=== PATIENT | male | born 1960 | race Caucasian/White ===

== ENCOUNTER 2021-01-01 18:10 | Emergency (ER) | payer OTHER, SELFPAY ==
--- NOTE | ~2021-01-01 | XR_ITS ---
EXAMINATION: XR HIP, RIGHT CLINICAL INFORMATION: Fall and pain COMPARISON: None TECHNIQUE: 6 plain film views of the right hip. FINDINGS: Femoral heads are well-seated within their respected acetabula. Degenerative changes are seen with small osteophyte formation. I do not appreciate any acute fracture or dislocation. Pelvic bones appear to be grossly intact with mild degenerative changes at the pubic symphysis and bilateral sacroiliac joints. Unremarkable bowel gas pattern XR/XR hip RT min 2V IMPRESSION: No acute fracture or dislocation with chronic appearing degenerative changes.
--- NOTE | ~2021-01-01 | CT_ITS ---
EXAMINATION: CT KNEE WITH CONTRAST, RIGHT CLINICAL INFORMATION: Knee swelling and pain COMPARISON: None TECHNIQUE: After 85 mL Omnipaque 350 intravenous contrast, contiguous helical axial tomographic images through the right knee were obtained. This CT examination was performed using dose optimization techniques as appropriate, variously including the following: *Automated exposure control *Adjustment of mA and/or kV according to patient size (this includes techniques or standardized protocols for targeted exams where dose is matched to indication/reason for exam; i.e. extremities or head) *Use of iterative reconstruction technique DLP: 226 mGy-cm FINDINGS: No fracture or dislocation seen. There is severe tricompartmental degenerative arthrosis of the knee. Medial and lateral compartment chondrocalcinosis are present. There is a moderate-sized joint effusion. There is ill-defined prepatellar soft tissue swelling but no rim-enhancing abscess seen. There is ill-defined fluid and fat stranding within the subcutaneous fat of the medial and lateral anterior subcutaneous fat from the level of the patella inferiorly. CT/CT knee RT w con IMPRESSION: No acute osseous abnormality. Severe tricompartmental degenerative arthrosis of the knee with a moderate sized joint effusion. There is ill-defined prepatellar soft tissue swelling with fluid and fat stranding of the medial and lateral anterior subcutaneous fat from the level of the patella inferiorly. This is nonspecific. They could be infectious or inflammatory, for example from cellulitis. Hematoma or soft tissue edema could have this appearance. No rim-enhancing abscess seen. No soft tissue gas. No radiopaque foreign body.
--- NOTE | ~2021-01-01 | US_ITS ---
EXAMINATION: US VENOUS ULTRASOUND WITH DOPPLER LOWER EXTREMITY, RIGHT CLINICAL INFORMATION: Swelling and pain status post fall COMPARISON: None TECHNIQUE: Ultrasound of the deep veins is performed from the hip to the calf with compression sonography and color and pulse Doppler assessment. Spectral analysis with color-flow imaging is performed. FINDINGS: There is normal venous compression and respiratory variation and augmented flow. The visualized common femoral vein, superficial femoral vein, profunda femoral vein, popliteal vein, and the trifurcation region shows no evidence of deep venous thrombosis. There is no significant popliteal fossa cyst. If the patient's symptoms persist, followup ultrasound in 5 days 7 days might be of value to exclude proximal propagation from a non-visualized calf vein. US/US venous duplex LE RT IMPRESSION: No DVT demonstrated in the right lower extremity.
[2021-01-01 18:27] VITALS: BP 178/93; BP 210/100; PULSE 107; PULSE 113; RESP 18; TEMP 36.8; O2SAT 95; O2SAT 97; BMI 44.6
--- NOTE | 2021-01-01 18:47 | ED.LOWEXIN ---
HPI - Extremity Injury (Lower) General Chief Complaint: Extremity Injury, Lower Stated Complaint: knee injury Time Seen by Provider: 01/01/21 18:39 Source: patient Mode of arrival: wheelchair Limitations: no limitations History of Present Illness HPI Narrative: 60-year-old male with past medical history of multiple bilateral knee surgeries presents with right knee pain and swelling after an injury sustained from snow shoveling. He states he is unable to walk and bear weight, and states the pressure inside his knee feels like it is going to split his knee open. He does not describe any fevers, chills, chest pain or pressure, palpitations, shortness breath, abdominal pain, abdominal distention, dysuria, hematuria, loss of sensation, or weakness. MD complaint: knee injury Onset (ago): day(s) (1) Injury: Right: knee Type of Injury: unknown Place: home Severity: severe Severity scale (1-10): 9 Relieving factors: nothing Exacerbating factors: weight bearing, movement and palpation Context: other (Snow shoveling) Associated symptoms: swelling and unable to bear weight Other symptoms: none Treatments prior to arrival: cold therapy and NSAIDS Related Data Previous Rx's Medication Instructions Recorded cyclobenzaprine 10 mg PO TID PRN #14 tab 01/01/21 oxycodone 5 mg PO Q6H PRN #10 tab 01/01/21 Allergies Allergy/AdvReac Type Severity Reaction Status Date / Time Penicillins [PCN] Allergy Intermediate HIVES Verified 01/01/21 18:27 CYNDIE Inhibitors Allergy Mild COUGH Verified 01/01/21 18:27 [CYNDIE INHIBITORS] Review of Systems Review of Systems: Constitutional: No Fever, No Chills ENT/Mouth: No Ear Pain, No Hoarseness, No sore throat Eyes: No Eye Pain, No Swelling, No Redness, No Foreign Body Cardiovascular: No Chest Pain, No SOB Respiratory: No Cough, No Dyspnea Gastrointestinal: No Nausea, No Vomiting, No Diarrhea, No abdominal Pain Genitourinary: No Dysuria, No Hematuria Musculoskeletal: positive right knee pain and swelling, No Myalgias Skin: No Skin lacerations, No rash Neuro: No Weakness, No Numbness, No Paresthesias, No Loss of Consciousness, No Dizziness, No Headache Psych: No Anxiety/Panic, No Depression Heme/Lymph: no easy bruising, no Lymphadenopathy Endocrine: No Polyuria, No Polydipsia Yes all other systems are reviewed and are negative [facility] Past Medical History Attestation statement: The following information was validated with the patient. Source: old records reviewed Medical History (Updated 01/02/21 @ 00:01 by Meaghan Au) Hypertension Hypothyroid Surgical History H/O left knee surgery History of cholecystectomy History of tonsillectomy Social History Social History Alcohol intake: current Alcohol intake frequency: a few times a week Smoking Status: Current every day smoker Substance Use Type: Marijuana Substance Use Frequency: Occasionally Last Used Substance: Weeks (ago) Advance Directives: No Advance Directives Information Provided: Yes Physical Exam Vital Signs: Vital Signs: Last Vital Signs Temp 98.4 F 01/01/21 22:35 Pulse 96 01/01/21 22:35 Resp 18 01/01/21 22:35 BP 153/78 H 01/01/21 22:35 Pulse Ox 96 01/01/21 22:35 Body Mass Index 44.6 Appearance: Alert. Oriented X3. Moderate distress. Eyes: Pupils equal, round and reactive to light. ENT: Pharynx normal. Neck: Normal inspection. Neck supple. CVS: Normal heart rate and rhythm. Pulses normal. Respiratory: No respiratory distress. Breath sounds normal. Abdomen: Soft and nontender. Skin: Skin warm and dry. Normal skin color. Normal skin turgor. Extremities: Right knee visibly swollen, tender to touch, decreased flexion and extension. Neuro: No motor deficit. No sensory deficit. Course Course Course Narrative: 60-year-old male with multiple knee surgeries presents with swelling of the right knee and pain on ambulation after an injury sustained while shoveling snow. Right knee is significantly larger than left, unable to bend flex or extend the knee. Plan of care to rule out DVT, x-ray of the hip, and CT scan of the knee. DVT is negative, hip x-ray is negative, CT scan shows large effusion. Discussion with Dr. Winston, he suggests tapping the knee and follow-up with him in the morning. Detailed discussion with patient regarding joint effusion aspiration, patient agrees with the plan of care. Procedure performed with aseptic technique, prepped and draped in sterile fashion, 85 mL of blood-tinged fluid aspirated. Pressure dressing applied. Patient will follow-up with Dr. Winston in the morning. Patient verbalized understanding of and agrees to plan of care discharge home. Consultations Consultation #1: Catrachito Time: 21:45 Procedures Joint Aspiration/Injection Joint Asp./Inject. 1: Time Out Performed: Yes Side of body: right Joint Aspirated: knee Ultrasound Guidance: Yes Skin Prep: Chlorhexidine Local Anesthetic: lidocaine 2% Amount of anesthesia used (mL): 5 Needle Size Used: 18G Fluid Obtained: bloody Total fluid obtained (mL): 85 Patient Tolerated Procedure: well and no complications Complications: none MDM - Extremity Injury (Lower) Differential Diagnosis Differential diagnosis: Likely acute internal derangement of knee and fracture of hip Medical Records Attestation: I reviewed the patient's medical records. Lab Data Attestation: I reviewed the patient's lab results. Result diagrams: 01/01/21 19:14 01/01/21 19:15 Labs: Lab Results 01/01/21 01/01/21 01/01/21 Range/Units 19:14 19:15 19:15 WBC 8.3 (4.8-10.8) X10*3/uL RBC 5.42 (4.60-5.80) X10*6/uL Hgb 15.2 (14.0-18.0) g/dl Hct 46.4 (42-52) % MCV 85.6 (80-98) fL MCH 28.0 (27.0-33.0) pg MCHC 32.8 (31.0-36.0) g/dl RDW 13.7 (11.0-16.0) % Plt Count 205 (160-400) X10*3/uL MPV 10.5 (9.4-12.4) fL Immature Gran % (Auto) 0.2 (0.0-0.4) % Neut % (Auto) 71.7 (45-73) % Lymph % (Auto) 15.2 L (20-40) % Traverse % (Auto) 9.5 (2-11) % Eos % (Auto) 2.8 (0-4) % Baso % (Auto) 0.6 (0-2) % Lymph # (Auto) 1.3 (1.2-4.9) X10*3/uL Traverse # (Auto) 0.8 (0.1-1.2) X10*3/uL Eos # (Auto) 0.2 (0.0-0.4) X10*3/uL Baso # (Auto) 0.1 (0.0-0.2) X10*3/uL Abs Immat Gran (auto) 0.02 (0.00-0.03) X10*3/uL Absolute Neuts (auto) 6.0 (2.0-8.3) X10*3/uL Absolute Nucleated RBC 0.000 (0.0-0.012) X10*3/uL Nucleated RBC % (auto) 0.0 (0.0-0.2) /100WBC PT 13.5 H (10.8-13.0) SEC INR 1.1 (0.9-1.1) APTT 35.3 (24.1-38.0) SEC Sodium 137 (135-145) mmol/L Potassium 3.8 (3.3-5.1) mmol/L Chloride 103 (96-108) mmol/L Carbon Dioxide 26 (22-29) mmol/L Anion Gap 12 (12-20) BUN 11 (9-16) mg/dL Creatinine 0.84 (0.5-1.4) mg/dL Estim Creat Clear Calc 149.0 Estimated GFR > 60 Random Glucose 212 H (60-115) mg/dL Calcium 8.8 (8.4-10.2) mg/dL Imaging Data Hip x-ray: Attestation: I personally reviewed and interpreted this imaging study as follows: Radiologist's impression: EXAMINATION: XR HIP, RIGHT CLINICAL INFORMATION: Fall and pain COMPARISON: None TECHNIQUE: 6 plain film views of the right hip. FINDINGS: Femoral heads are well-seated within their respected acetabula. Degenerative changes are seen with small osteophyte formation. I do not appreciate any acute fracture or dislocation. Pelvic bones appear to be grossly intact with mild degenerative changes at the pubic symphysis and bilateral sacroiliac joints. Unremarkable bowel gas pattern XR/XR hip RT min 2V IMPRESSION: No acute fracture or dislocation with chronic appearing degenerative changes. Venous US: Attestation: I personally reviewed and interpreted this imaging study as follows: Radiologist's impression: EXAMINATION: US VENOUS ULTRASOUND WITH DOPPLER LOWER EXTREMITY, RIGHT CLINICAL INFORMATION: Swelling and pain status post fall COMPARISON: None TECHNIQUE: Ultrasound of the deep veins is performed from the hip to the calf with compression sonography and color and pulse Doppler assessment. Spectral analysis with color-flow imaging is performed. FINDINGS: There is normal venous compression and respiratory variation and augmented flow. The visualized common femoral vein, superficial femoral vein, profunda femoral vein, popliteal vein, and the trifurcation region shows no evidence of deep venous thrombosis. There is no significant popliteal fossa cyst. If the patient's symptoms persist, followup ultrasound in 5 days 7 days might be of value to exclude proximal propagation from a non-visualized calf vein. US/US venous duplex LE RT IMPRESSION: No DVT demonstrated in the right lower extremity. CT scan of knee: Attestation: I personally reviewed and interpreted this imaging study as follows: Radiologist's impression: EXAMINATION: CT KNEE WITH CONTRAST, RIGHT CLINICAL INFORMATION: Knee swelling and pain COMPARISON: None TECHNIQUE: After 85 mL Omnipaque 350 intravenous contrast, contiguous helical axial tomographic images through the right knee were obtained. This CT examination was performed using dose optimization techniques as appropriate, variously including the following: *Automated exposure control *Adjustment of mA and/or kV according to patient size (this includes techniques or standardized protocols for targeted exams where dose is matched to indication/reason for exam; i.e. extremities or head) *Use of iterative reconstruction technique DLP: 226 mGy-cm FINDINGS: No fracture or dislocation seen. There is severe tricompartmental degenerative arthrosis of the knee. Medial and lateral compartment chondrocalcinosis are present. There is a moderate-sized joint effusion. There is ill-defined prepatellar soft tissue swelling but no rim-enhancing abscess seen. There is ill-defined fluid and fat stranding within the subcutaneous fat of the medial and lateral anterior subcutaneous fat from the level of the patella inferiorly. CT/CT knee RT w con IMPRESSION: No acute osseous abnormality. Severe tricompartmental degenerative arthrosis of the knee with a moderate sized joint effusion. There is ill-defined prepatellar soft tissue swelling with fluid and fat stranding of the medial and lateral anterior subcutaneous fat from the level of the patella inferiorly. This is nonspecific. They could be infectious or inflammatory, for example from cellulitis. Hematoma or soft tissue edema could have this appearance. No rim-enhancing abscess seen. No soft tissue gas. No radiopaque foreign body. Discharge Plan Discharge Clinical Impression: Hemarthrosis of knee, right Patient Disposition: Home, Self-Care Instructions: Hemarthrosis (ED) Additional Instructions: You were evaluated for right knee pain and swelling after an injury while shoveling snow. CT scan showed swelling, we did aspirate the joint and removed 85 mL of bloody drainage. You must follow-up with orthopedics. Please call and make an appointment. We prescribed oxycodone for pain management. Oxycodone is a narcotic and has high risk for addiction and abuse. Do not drive or operate machinery while taking this medication. This medication will increase risk for falls, cause drowsiness and constipation. Drink plenty of fluids, use MiraLax and/or Colace as needed to help soften stools. Thank you for choosing this emergency department for evaluation. Please follow-up with primary care physician as needed. Return to the emergency department for any new, concerning, or worsening symptoms. Prescriptions: New oxycodone 5 mg tablet 5 mg PO Q6H PRN (Reason: pain) Qty: 10 RF: 0 cyclobenzaprine 10 mg tablet 10 mg PO TID PRN (Reason: muscle spasm) Qty: 14 RF: 0 Referrals: Jarrett Winston MD [Physician] - 2 days (Right knee hemarthrosis) Interventions: ED Discharge Assessment Last Done: 01/01/21 22:41 Discharge Date/Time: 01/01/21 22:53
[2021-01-01] MEDS: Morphine Sulfate 4 MG/ML CARTRIDGE IVPUSH (19:15)
[2021-01-01] MEDS: 0.9 % Sodium Chloride 1,000 ML 999 ML IVCONT (19:16)
[2021-01-01] MEDS: ondansetron HCL 4 MG/2 ML VIAL IVPUSH (19:16)
--- NOTE | 2021-01-01 19:27 | PC.NURSE ---
PT IN [facility]RETCH[facility] C/O PAIN TO RIGHT LEG. IV PLACED TO LAC, LABS DRAWN TO LAB. PT MEDICATED FOR PAIN AND NAUSEA. PT TO X-RAY IN [facility]RET[facility].
[2021-01-01 19:30] LABS: MANUAL DIFF FLAG NO
[2021-01-01 19:31] LABS: Basophils Absolute Auto 0.1 X10*3/uL (0.0-0.2); Basophils Percent Auto 0.6 % (0-2); Eosinophils Absolute Auto 0.2 X10*3/uL (0.0-0.4); Eosinophils Percent Auto 2.8 % (0-4); Hematocrit 46.4 % (42-52); Hemoglobin 15.2 g/dl (14.0-18.0); Imm Gran Abs Auto 0.02 X10*3/uL (0.00-0.03); Imm Gran Pct Auto 0.2 % (0.0-0.4); Lymphocytes Absolute Auto 1.3 X10*3/uL (1.2-4.9); Lymphocytes Percent Auto 15.2 % (20-40); Mean Corpuscular HGB Conc 32.8 g/dl (31.0-36.0); Mean Corpuscular Volume 85.6 fL (80-98); Mean Platelet Volume 10.5 fL (9.4-12.4); Monocytes Absolute Auto 0.8 X10*3/uL (0.1-1.2); Monocytes Percent Auto 9.5 % (2-11); Neutrophils Percent Auto 71.7 % (45-73); Platelet Count 205 X10*3/uL (160-400); Red Blood Count 5.42 X10*6/uL (4.60-5.80); Red Cell Distribution Width 13.7 % (11.0-16.0); White Blood Count 8.3 X10*3/uL (4.8-10.8)
[2021-01-01 19:36] LABS: INTERNATIONAL NORM RATIO 1.1 (0.9-1.1); Prothrombin Time 13.5 SEC (10.8-13.0)
[2021-01-01 19:39] LABS: Partial Thromboplastin Time 35.3 SEC (24.1-38.0)
[2021-01-01 19:52] LABS: Anion Gap 12 (12-20); Blood Urea Nitrogen 11 mg/dL (9-16); Calcium 8.8 mg/dL (8.4-10.2); Carbon Dioxide 26 mmol/L (22-29); Chloride 103 mmol/L (96-108); Estimated Glomerular Filt Rate > 60; Glucose Random 212 mg/dL (60-115); Potassium 3.8 mmol/L (3.3-5.1); Sodium 137 mmol/L (135-145)
[2021-01-01] MEDS: iohexoL 350 MG/ML 100 ML INFUS..BTL IV (20:12)
[2021-01-01] MEDS: Acetaminophen 325 MG TABLET 650 MG PO (20:27)
[2021-01-01] MEDS: oxyCODONE HCl Immed Release 5 MG TABLET PO (20:28)
[2021-01-01] MEDS: Morphine Sulfate 2 MG/ML CARTRIDGE IVPUSH (20:28)
--- NOTE | 2021-01-01 20:30 | PC.NURSE ---
pt medicated for 10/10 rt knee pain per order
[2021-01-01] MEDS: Lidocaine HCl 2 % MPF 5 ML VIAL 10 ML SUBCUT (21:30)
[2021-01-01 22:35] VITALS: BP 153/78; PULSE 96; RESP 18; TEMP 36.9; O2SAT 96
--- NOTE | 2021-01-01 22:39 | PC.NURSE ---
85ml fluid aspirated from rt knee, sample sent to lab, tech getting crutches
== END 2021-01-01 22:53 | disposition home or self-care (01) ==
PROVIDERS: Nurse Practitioner Family; Emergency Provider Emergency Medicine
DX: M25.061 Hemarthrosis, right knee (principal); M25.461 Effusion, right knee; G89.11 Acute pain due to trauma; M25.561 Pain in right knee; I10 Essential (primary) hypertension
CPT/HCPCS: 20611; 36415; 73502; 73701; 80048; 85025; 85610; 85730; 87071; 87073; 87205; 93971; 96361; 96374; 96375; 96376; 99284; J2270; J2405; Q9967

== ENCOUNTER → 2021-01-04 12:37 | Outpatient (BNVA) | payer OTHER, SELFPAY | PROVIDERS: Visit Provider Orthopaedic Surgery | DX: M17.11 Unilateral primary osteoarthritis, right knee (principal) | CPT/HCPCS: 20610; 99202; J1100 ==

== ENCOUNTER → 2021-01-18 12:40 | Outpatient (BNVA) | payer OTHER, SELFPAY | PROVIDERS: Visit Provider Orthopaedic Surgery | DX: Z13.89 Encounter for screening for other disorder (principal) | CPT/HCPCS: 99212 ==

== ENCOUNTER 2021-03-19 08:05 | Outpatient (REF) | payer OTHER, SELFPAY | END 2021-03-19 08:06 | disposition home or self-care (01) | LOC: HO.HOSX 08:05 | PROVIDERS: Visit Provider Orthopaedic Surgery | DX: Z13.89 Encounter for screening for other disorder (principal) ==

== ENCOUNTER 2021-03-22 08:10 | Outpatient (REF) | payer OTHER, SELFPAY ==
--- NOTE | ~2021-03-22 | XR_ITS ---
EXAMINATION: XR KNEE, RIGHT XR KNEE, LEFT XR BILATERAL KNEES STANDING CLINICAL INFORMATION: Pain COMPARISON: CT right knee 01/01/2021. TECHNIQUE: Bilateral knees AP 1 view; right knee 2 views. Left knee 2 views. FINDINGS: Right Knee: Severe tricompartment arthritis, joint space loss, prominent osteophytes, cysts. No fracture or dislocation. Small to moderate joint effusion. Loose bodies. Vascular calcification. Left Knee: Severe medial and lateral compartment arthritis. Moderate to severe patellofemoral arthritis.. No fracture or dislocation. Moderate to large joint effusion. Calcifications in the knee joint suggesting loose bodies. XR/XR knee RT 2V IMPRESSION: Right Knee: Severe tricompartment arthritis. Small to moderate effusion. Loose bodies. Left Knee: Advanced tricompartment osteoarthritis. Severe medial and lateral compartment arthritis. Moderate to large effusion. Probable loose bodies.
--- NOTE | ~2021-03-22 | XR_ITS ---
EXAMINATION: XR KNEE, RIGHT XR KNEE, LEFT XR BILATERAL KNEES STANDING CLINICAL INFORMATION: Pain COMPARISON: CT right knee 01/01/2021. TECHNIQUE: Bilateral knees AP 1 view; right knee 2 views. Left knee 2 views. FINDINGS: Right Knee: Severe tricompartment arthritis, joint space loss, prominent osteophytes, cysts. No fracture or dislocation. Small to moderate joint effusion. Loose bodies. Vascular calcification. Left Knee: Severe medial and lateral compartment arthritis. Moderate to severe patellofemoral arthritis.. No fracture or dislocation. Moderate to large joint effusion. Calcifications in the knee joint suggesting loose bodies. XR/XR knee standing BI IMPRESSION: Right Knee: Severe tricompartment arthritis. Small to moderate effusion. Loose bodies. Left Knee: Advanced tricompartment osteoarthritis. Severe medial and lateral compartment arthritis. Moderate to large effusion. Probable loose bodies.
--- NOTE | ~2021-03-22 | XR_ITS ---
EXAMINATION: XR KNEE, RIGHT XR KNEE, LEFT XR BILATERAL KNEES STANDING CLINICAL INFORMATION: Pain COMPARISON: CT right knee 01/01/2021. TECHNIQUE: Bilateral knees AP 1 view; right knee 2 views. Left knee 2 views. FINDINGS: Right Knee: Severe tricompartment arthritis, joint space loss, prominent osteophytes, cysts. No fracture or dislocation. Small to moderate joint effusion. Loose bodies. Vascular calcification. Left Knee: Severe medial and lateral compartment arthritis. Moderate to severe patellofemoral arthritis.. No fracture or dislocation. Moderate to large joint effusion. Calcifications in the knee joint suggesting loose bodies. XR/XR knee LT 2V IMPRESSION: Right Knee: Severe tricompartment arthritis. Small to moderate effusion. Loose bodies. Left Knee: Advanced tricompartment osteoarthritis. Severe medial and lateral compartment arthritis. Moderate to large effusion. Probable loose bodies.
== END 2021-03-22 08:11 | disposition home or self-care (01) ==
LOC: HO.HOSX 08:10
PROVIDERS: Visit Provider Orthopaedic Surgery
DX: M17.11 Unilateral primary osteoarthritis, right knee (principal)
CPT/HCPCS: 73560; 73565; 99212

== ENCOUNTER 2024-09-29 14:31 | Outpatient (REF) | payer MEDICARE, MEDICAID, SELFPAY ==
[2024-09-29 15:16] LABS: MANUAL DIFF FLAG NO
[2024-09-29 15:39] LABS: Basophils Absolute Auto 0.1 X10*3/uL (0.0-0.2); Basophils Percent Auto 0.7 % (0-2); Eosinophils Absolute Auto 0.5 X10*3/uL (0.0-0.4); Eosinophils Percent Auto 6.5 % (0-4); Hematocrit 44.4 % (42.0-52.0); Hemoglobin 14.6 g/dl (14.0-18.0); Imm Gran Abs Auto 0.02 X10*3/uL (0.00-0.03); Imm Gran Pct Auto 0.2 % (0.0-0.4); Lymphocytes Absolute Auto 2.2 X10*3/uL (1.2-4.9); Lymphocytes Percent Auto 27.1 % (20-40); Mean Corpuscular HGB Conc 32.9 g/dl (31.0-36.0); Mean Corpuscular Hemoglobin 28.1 pg (27.0-33.0); Mean Corpuscular Volume 85.4 fL (80.0-98.0); Mean Platelet Volume 10.6 fL (9.4-12.4); Monocytes Absolute Auto 0.6 X10*3/uL (0.1-1.2); Monocytes Percent Auto 7.4 % (2-11); Neutrophils Absolute Auto 4.8 x10*3/uL (2.0-8.3); Neutrophils Percent Auto 58.1 % (45-73); Platelet Count 277 X10*3/uL (160-400); Red Cell Distribution Width 15.1 % (11.0-16.0); White Blood Count 8.2 X10*3/uL (4.8-10.8)
[2024-09-30 14:33] LABS: Class Alternaria alternata 0; Class Aspergillus fumigatus 0; Class Bermuda Grass 0; Class Birch 0; Class Cat Dander 0; Class Cladosporium herbarum 0; Class Cockroach 0; Class Common Ragweed 0; Class Cottonwood 0; Class Derm. pterony 0; Class Dermatophagoides farinae 0; Class Dog Dander 0; Class Elm 0; Class Maple Box Elder 0; Class Mountain Cedar 0; Class Mouse Urine Protein 0; Class Mugwort 0; Class Oak 0; Class Penicillium crysogenum 0; Class Rough Pigweed 0; Class Sheep Sorrel 0; Class Sycamore 0; Class Timothy Grass 0; Class Walnut Tree 0; Class White Ash 0; Class White Mulberry 0; D001 IgE D pteronyssinus <0.10 kU/L; D002 - IgE D farinae <0.10 kU/L; E001 - IgE Cat Dander <0.10 kU/L; E005 - IgE Dog Dander <0.10 kU/L; E072-IgE Mouse Urine <0.10 kU/L; G002 IgE Bermuda Grass <0.10 kU/L; G006 - IgE Timothy Grass <0.10 kU/L; I006-IgE Cockroach, German <0.10 kU/L; Immunoglobulin E 109 kU/L (<OR=114); M001 IgE Penicillium chrysogen <0.10 kU/L; M002 - IgE Cladosporium herbar <0.10 kU/L; M003 - IgE Aspergillus fumigat <0.10 kU/L; M006 - IgE Alternaria alternat <0.10 kU/L; T001 IgE Maple/Box Elder <0.10 kU/L; T003 IgE Common Silver Birch <0.10 kU/L; T006 - IgE Cedar, Mountain <0.10 kU/L; T007 - IgE Oak, White <0.10 kU/L; T008 IgE Elm, American <0.10 kU/L; T010 - IgE Walnut <0.10 kU/L; T011 - IgE Maple Leaf Sycamore <0.10 kU/L; T014 - IgE Cottonwood <0.10 kU/L; T015 - IgE Ash, White <0.10 kU/L; T070 - IgE White Mulberry <0.10 kU/L; W001 - IgE Ragweed, Short <0.10 kU/L; W006 - IgE Mugwort <0.10 kU/L; W014 IgE Pigweed, Common <0.10 kU/L; W018 IgE Sheep Sorrel <0.10 kU/L
== END 2024-09-29 14:32 | disposition home or self-care (01) ==
LOC: HO.LAB 14:31
PROVIDERS: PCP Internal Medicine; Visit Provider Internal Medicine Pulmonary Disease
DX: Z91.09 Other allergy status, other than to drugs and biological substances (principal); J43.9 Emphysema, unspecified; J90 Pleural effusion, not elsewhere classified
CPT/HCPCS: 36415; 82785; 85025; 86003; 99202

== ENCOUNTER 2024-09-29 14:31 | Outpatient (AMB) | payer MEDICARE, MEDICAID, SELFPAY ==
--- NOTE | 2024-09-29 14:33 | A.OFFVIS_ITS ---
Vital Signs 09/29/24 14:35 Height 6 ft 3 in Weight 349 lb 6.923 oz BMI 43.7 BP 102/62 Blood Pressure Location Rt brachial Position Sitting Pulse Oximetry (%) 96 Oxygen Delivery Method Room Air Intake Visit Reasons: copd/asthma Allergies Penicillins [PCN] Allergy (Intermediate, Verified 09/29/24 14:39) HIVES CYNDIE Inhibitors [CYNDIE INHIBITORS] Allergy (Mild, Verified 09/29/24 14:39) COUGH HPI HPI copd/asthma: Details: 64-year-old gentleman, recent approximately 15 pack-year smoker, quit March of 2024 referred pulmonary evaluation. Patient did have recent pulmonary function testing that showed [id number] restrictive physiology and mild decrease in diffusion capacity, but no fixed obstruction. He has been using Combivent with suboptimal control of his symptoms. He also was previously tried on Anoro with no significant response. Patient does complain of significant environmental allergies. He does have history of COPD in his mother. 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 He has a history of recurrent left-sided pleural effusion requiring pleurodesis at [facility] several years prior. [facility] Medical History Hypertension Hypothyroid Osteoarthritis of right knee Surgical History H/O left knee surgery History of cholecystectomy History of tonsillectomy Social History (Updated 09/29/24 @ 14:41 by Etta Dutta Radhames) Alcohol intake: current Alcohol intake frequency: a few times a week Patient Tobacco Use Status: Former Tobacco user Tobacco use type: Cigarette Years Smoked: started at age 23, 0.5PPD, quit 5 months april 2024 Substance Use Type: Marijuana Current occupational status: unemployed Current occupation: right handed Review of Systems Const Denies daytime sleepiness, Denies excessive sweating, Denies fatigue, Denies fever(s), Denies lethargy, Denies malaise, Denies night sweats, Denies snoring and Denies weight loss Eyes Denies blurry vision and Denies itchy eyes ENT Denies nasal congestion, Denies post nasal drip, Denies sinus pain, Denies sinus pressure and Denies other ( Thrush) Card Denies chest pain, Denies pedal edema, Denies dyspnea, Reports dyspnea on exertion (When going uphill or with stairs), Denies orthopnea and Denies paroxysmal nocturnal dyspnea Resp Denies cough, Denies hemoptysis, Denies excessive phlegm production, Denies dyspnea, Reports dyspnea on exertion (When going uphill or with stairs), Denies snoring and Denies wheezing GI Denies abdominal pain and Denies heartburn Musc Denies myalgias, Denies arthralgias and Denies joint swelling Skin/Breast Denies rash Neuro Denies memory loss and Denies seizure-like activity Psych Denies abnormal sleep pattern, Denies anxiety and Denies memory loss Endo Denies excessive sweating, Denies fatigue and Denies heat intolerance Parag/Lymph Denies easy bruising Aller/Immun Denies itchy eyes, Denies seasonal rhinorrhea and Denies wheezing Physical Exam Vital Signs: Last Vital Signs BP 102/62 09/29/24 14:35 Pulse Ox 96 09/29/24 14:35 Oxygen Delivery Method Room Air 09/29/24 14:35 BMI result Body Mass Index 43.7 Const General: no acute distress and alert Nutritional Appearance: obese Orientation/consciousness: Other orientation findings ( oriented) HEENT Head: Yes atraumatic Eyes General: appearance normal, both eyes and all related structures Sclerae: sclerae normal EOM: EOMs intact bilaterally Neck Neck: Yes supple Lymphatic: no lymphadenopathy noted Resp Effort & Inspection: normal respiratory effort and no use of accessory muscles Auscultation: clear to auscultation bilaterally Cardio Rate: regular rate Rhythm: regular rhythm Heart sounds: no gallops, no murmurs and no rubs Skin General skin exam: other ( warm) Extrem General: No clubbing, No cyanosis and No edema Assessment & Plan Assessment & Plan (1) Environmental allergies: Code(s): Z91.09 - Other allergy status, other than to drugs and biological substances Category: Medical Plan: Will obtain IgE level, CBC with differential, and RAST panel for further evaluation. (2) Pulmonary emphysema: Code(s): J43.9 - Emphysema, unspecified Category: Medical Plan: Pulmonary and critical with likely underlying asthma. Results of PFT reviewed. Suboptimally controlled. Will start on empiric Breo and continue Combivent. (3) Recurrent pleural effusion: Code(s): J90 - Pleural effusion, not elsewhere classified Category: Medical Plan: Will obtain CT chest for further evaluation. Orders: Orders Complete Blood Count Auto Diff Today Z91.09 - Other allergy status, other than to drugs and biological substances Resp Allergy Profile Region I Today Z91.09 - Other allergy status, other than to drugs and biological substances CT chest wo IV con Today J90 - Pleural effusion, not elsewhere classified Medications: New fluticasone furoate-vilanterol 200-25 mcg/dose (Breo Ellipta) 1 inh inhalation DAILY 1 ea 6RF Z91.09 - Other allergy status, other than to drugs and biological substances ipratropium-albuterol 20-100 mcg/actuation (Combivent Respimat) 1 puff inhalation QID 4 grams 6RF Z91.09 - Other allergy status, other than to drugs and biological substances Coding Level of Care Code New Pt Level 4 (39531) Diagnoses Environmental allergies Z91.09 Pulmonary emphysema J43.9 Recurrent pleural effusion J90
[2024-09-29 14:35] VITALS: BP 102/62; O2SAT 96; BMI 43.7
== END 2024-09-29 14:59 | disposition home or self-care (01) ==
PROVIDERS: PCP Internal Medicine; Referring Provider Internal Medicine; Visit Provider Internal Medicine Pulmonary Disease
DX: Z91.09 Other allergy status, other than to drugs and biological substances (principal); J43.9 Emphysema, unspecified; J90 Pleural effusion, not elsewhere classified
CPT/HCPCS: 99204

== ENCOUNTER 2024-10-27 10:45 | Outpatient (AMB) | payer MEDICARE, MEDICAID, SELFPAY ==
[2024-10-27 10:49] VITALS: BP 138/72; PULSE 77; O2SAT 99; BMI 44.0
--- NOTE | 2024-10-27 10:49 | MHC.OFFVIS ---
Vital Signs 10/27/24 10:49 Height 6 ft 3 in Weight 352 lb BMI 44.0 BP 138/72 Blood Pressure Location Rt brachial Position Sitting Pulse 77 Pulse Source Doppler Pulse Oximetry (%) 99 Oxygen Delivery Method Room Air Intake Visit Reasons: COPD/Asthma Allergies Penicillins [PCN] Allergy (Intermediate, Verified 09/29/24 14:39) HIVES CYNDIE Inhibitors [CYNDIE INHIBITORS] Allergy (Mild, Verified 09/29/24 14:39) COUGH HPI HPI COPD/Asthma: Details: 64-year-old gentleman, recent approximately 15 pack-year smoker, quit March of 2024 referred pulmonary evaluation. Patient did have recent pulmonary function testing that showed [id number] restrictive physiology and mild decrease in diffusion capacity, but no fixed obstruction. He has been using Combivent with suboptimal control of his symptoms. He also was previously tried on Anoro with no significant response. Patient does complain of significant environmental allergies. He does have history of COPD in his mother. 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 He has a history of recurrent left-sided pleural effusion requiring pleurodesis at [facility] several years prior. After the last office visit patient completed his immunologic workup showing peripheral eosinophilia, but negative RAST. His acute symptoms improved on prednisone course/antibiotic course. He does complain of some dyspnea on exertion. [facility] Medical History Hypertension Hypothyroid Osteoarthritis of right knee Surgical History H/O left knee surgery History of cholecystectomy History of tonsillectomy Social History (Updated 09/29/24 @ 14:41 by Etta Dutta [facility]) Alcohol intake: current Alcohol intake frequency: a few times a week Patient Tobacco Use Status: Former Tobacco user Tobacco use type: Cigarette Years Smoked: started at age 23, 0.5PPD, quit 5 months april 2024 Substance Use Type: Marijuana Current occupational status: unemployed Current occupation: right handed Review of Systems Const Denies daytime sleepiness, Denies excessive sweating, Denies fatigue, Denies fever(s), Denies lethargy, Denies malaise, Denies night sweats, Denies snoring and Denies weight loss Eyes Denies blurry vision and Denies itchy eyes ENT Denies nasal congestion, Denies post nasal drip, Denies sinus pain, Denies sinus pressure and Denies other ( Thrush) Card Denies chest pain, Denies pedal edema, Denies dyspnea, Reports dyspnea on exertion, Denies orthopnea and Denies paroxysmal nocturnal dyspnea Resp Denies cough, Denies hemoptysis, Denies excessive phlegm production, Denies dyspnea, Reports dyspnea on exertion, Denies snoring and Denies wheezing GI Denies abdominal pain and Denies heartburn Musc Denies myalgias, Denies arthralgias and Denies joint swelling Skin/Breast Denies rash Neuro Denies memory loss and Denies seizure-like activity Psych Denies abnormal sleep pattern, Denies anxiety and Denies memory loss Endo Denies excessive sweating, Denies fatigue and Denies heat intolerance Parag/Lymph Denies easy bruising Aller/Immun Denies itchy eyes, Denies seasonal rhinorrhea and Denies wheezing Physical Exam Vital Signs: Last Vital Signs Pulse 77 10/27/24 10:49 BP 138/72 10/27/24 10:49 Pulse Ox 99 10/27/24 10:49 Oxygen Delivery Method Room Air 10/27/24 10:49 BMI result Body Mass Index 44.0 Const General: no acute distress and alert Nutritional Appearance: obese Orientation/consciousness: Other orientation findings ( oriented) HEENT Head: Yes atraumatic Eyes General: appearance normal, both eyes and all related structures Sclerae: sclerae normal EOM: EOMs intact bilaterally Neck Neck: Yes supple Lymphatic: no lymphadenopathy noted Resp Effort & Inspection: normal respiratory effort and no use of accessory muscles Auscultation: clear to auscultation bilaterally Cardio Rate: regular rate Rhythm: regular rhythm Heart sounds: no gallops, no murmurs and no rubs Skin General skin exam: other ( warm) Extrem General: No clubbing, No cyanosis and No edema Assessment & Plan Assessment & Plan (1) Environmental allergies: Code(s): Z91.09 - Other allergy status, other than to drugs and biological substances Category: Medical Plan: Results of immunologic testing reviewed, underlying eosinophilia suggestive of allergic component to his symptoms, if not controlled on inhaled corticosteroid, will consider Dupixent. (2) Reactive airway disease: Code(s): J45.909 - Unspecified asthma, uncomplicated Category: Medical Plan: Results of pulmonary function test from [facility] from May of 2024 reviewed, no fixed obstruction, positive bronchodilator minimal decrease in diffusion capacity. Suggestive of underlying reactive airway disease suboptimally controlled Combivent. Will start on Breo, if not improving, may consider Dupixent. Medications: New fluticasone furoate-vilanterol 200-25 mcg/dose (Breo Ellipta) 1 inh inhalation DAILY 1 ea 6RF Coding Level of Care Code Est Pt Level 4 (10162) Diagnoses Environmental allergies Z91.09 Reactive airway disease J45.909
== END 2024-10-27 11:22 | disposition home or self-care (01) ==
PROVIDERS: PCP Internal Medicine; Visit Provider Internal Medicine Pulmonary Disease
DX: Z91.09 Other allergy status, other than to drugs and biological substances (principal); J45.909 Unspecified asthma, uncomplicated
CPT/HCPCS: 99214

== ENCOUNTER → 2024-10-27 10:45 | Outpatient (BNVA) | payer MEDICARE, MEDICAID, SELFPAY | PROVIDERS: PCP Internal Medicine; Visit Provider Internal Medicine Pulmonary Disease | DX: J45.909 Unspecified asthma, uncomplicated (principal); Z91.09 Other allergy status, other than to drugs and biological substances | CPT/HCPCS: 99212 ==

== ENCOUNTER 2024-11-30 10:30 | Outpatient (AMB) | payer MEDICARE, MEDICAID, SELFPAY ==
--- NOTE | 2024-11-30 10:44 | MHC.OFFVIS ---
Vital Signs 11/30/24 10:45 Height 6 ft 3 in Weight 352 lb 11.834 oz BMI 44.1 BP 144/76 H Blood Pressure Location Rt brachial Position Sitting Pulse 94 Pulse Source Pulse Oximeter Pulse Oximetry (%) 98 Oxygen Delivery Method Room Air Intake Visit Reasons: COPD/Asthma Allergies Penicillins [PCN] Allergy (Intermediate, Verified 11/30/24 10:48) HIVES CYNDIE Inhibitors [CNYDIE INHIBITORS] Allergy (Mild, Verified 11/30/24 10:48) COUGH Medication List - Last Reconciled 11/30/24 by Smyone Zavala, [employer] allopurinol 300 mg PO DAILY amlodipine 10 mg PO DAILY cyclobenzaprine 10 mg PO TID PRN hydrochlorothiazide 50 mg PO DAILY ipratropium-albuterol 20-100 mcg/actuation (Combivent Respimat) 1 puff inhalation QID levothyroxine 50 mcg PO DAILY HPI HPI COPD/Asthma: Details: 64-year-old gentleman, recent approximately 15 pack-year smoker, quit March of 2024 referred pulmonary evaluation. Patient did have recent pulmonary function testing that showed [id number]-kz-gftipxch restrictive physiology and mild decrease in diffusion capacity, but no fixed obstruction. He has been using Combivent with suboptimal control of his symptoms. He also was previously tried on Anoro with no significant response. Patient does complain of significant environmental allergies. He does have history of COPD in his mother. 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 He has a history of recurrent left-sided pleural effusion requiring pleurodesis at [facility] several years prior. After the last office visit patient c was started on Breo, her weight was too expensive and he was not able to use it. He continues to intentionally lose weight. [facility] Medical History Hypertension Hypothyroid Osteoarthritis of right knee Surgical History H/O left knee surgery History of cholecystectomy History of tonsillectomy Social History (Updated 09/29/24 @ 14:41 by Etta Dutta Radhames) Alcohol intake: current Alcohol intake frequency: a few times a week Patient Tobacco Use Status: Former Tobacco user Tobacco use type: Cigarette Years Smoked: started at age 23, 0.5PPD, quit 5 months april 2024 Substance Use Type: Marijuana Current occupational status: unemployed Current occupation: right handed Review [employer] Const Denies daytime sleepiness, Denies excessive sweating, Denies fatigue, Denies fever(s), Denies lethargy, Denies malaise, Denies night sweats, Denies snoring and Denies weight loss Eyes Denies blurry vision and Denies itchy eyes ENT Denies nasal congestion, Denies post nasal drip, Denies sinus pain, Denies sinus pressure and Denies other ( Thrush) Card Denies chest pain, Denies pedal edema, Denies dyspnea, Denies orthopnea and Denies paroxysmal nocturnal dyspnea Resp Denies cough, Denies hemoptysis, Denies excessive phlegm production, Denies dyspnea, Denies snoring and Denies wheezing GI Denies abdominal pain and Denies heartburn Musc Denies myalgias, Denies arthralgias and Denies joint swelling Skin/Breast Denies rash Neuro Denies memory loss and Denies seizure-like activity Psych Denies abnormal sleep pattern, Denies anxiety and Denies memory loss Endo Denies excessive sweating, Denies fatigue and Denies heat intolerance Parag/Lymph Denies easy bruising Aller/Immun Denies itchy eyes, Denies seasonal rhinorrhea and Denies wheezing Physical Exam Vital Signs: Last Vital Signs Pulse 94 11/30/24 10:45 BP 144/76 H 11/30/24 10:45 Pulse Ox 98 11/30/24 10:45 Oxygen Delivery Method Room Air 11/30/24 10:45 BMI result Body Mass Index 44.1 Const General: no acute distress and alert Nutritional Appearance: obese Orientation/consciousness: Other orientation findings ( oriented) HEENT Head: Yes atraumatic Eyes General: appearance normal, both eyes and all related structures Sclerae: sclerae normal EOM: EOMs intact bilaterally Neck Neck: Yes supple Lymphatic: no lymphadenopathy noted Resp Effort & Inspection: normal respiratory effort and no use of accessory muscles Auscultation: clear to auscultation bilaterally Cardio Rate: regular rate Rhythm: regular rhythm Heart sounds: no gallops, no murmurs and no rubs Skin General skin exam: other ( warm) Extrem General: No clubbing, No cyanosis and No edema Assessment & Plan Assessment & Plan (1) Reactive airway disease: Code(s): J45.909 - Unspecified asthma, uncomplicated Category: Medical Plan: Suboptimal control as in trios to expensive, switch to Advair, or may need AirDuo. Continue Combivent. Will assess symptoms in 6 weeks, if not better will consider Dupixent. (2) Environmental allergies: Code(s): Z91.09 - Other allergy status, other than to drugs and biological substances Category: Medical Plan: Significant eosinophilia resultant in immunologic component to his asthma symptoms. If not better on inhaled corticosteroid will consider Dupixent. Medications: New fluticasone propion-salmeterol 230-21 mcg/actuation (Advair HFA) 2 puffs inhalation Q12H 12 grams 6RF Coding Level of Care Code Est Pt Level 4 (98840) Diagnoses Reactive airway disease J45.909 Environmental allergies Z91.09
[2024-11-30 10:45] VITALS: BP 144/76; PULSE 94; O2SAT 98; BMI 44.1
== END 2024-11-30 10:59 | disposition home or self-care (01) ==
PROVIDERS: PCP Internal Medicine; Visit Provider Internal Medicine Pulmonary Disease
DX: J45.909 Unspecified asthma, uncomplicated (principal); Z91.09 Other allergy status, other than to drugs and biological substances
CPT/HCPCS: 99214

== ENCOUNTER → 2024-11-30 10:30 | Outpatient (BNVA) | payer MEDICARE, MEDICAID, SELFPAY | PROVIDERS: PCP Internal Medicine; Visit Provider Internal Medicine Pulmonary Disease | DX: J45.909 Unspecified asthma, uncomplicated (principal); Z91.09 Other allergy status, other than to drugs and biological substances; Z87.891 Personal history of nicotine dependence | CPT/HCPCS: 99212 ==

== ENCOUNTER 2025-08-29 10:59 | Outpatient (AMB) | payer MEDICARE, MEDICAID, SELFPAY ==
[2025-08-29 11:03] VITALS: BP 122/62; PULSE 92; O2SAT 97; BMI 45.9
--- NOTE | 2025-08-29 11:03 | MHC.OFFVIS ---
Vital Signs 08/29/25 11:03 Height 6 ft 3 in Weight 367 lb BMI 45.9 BP 122/62 Blood Pressure Location Rt brachial Position Sitting Pulse 92 Pulse Source Pulse Oximeter Pulse Oximetry (%) 97 Oxygen Delivery Method Room Air Intake Visit Reasons: COPD Allergies Penicillins (PCN) Allergy (Intermediate, Verified 08/29/25 11:07) HIVES CYNDIE Inhibitors (CYNDIE INHIBITORS) Allergy (Mild, Verified 08/29/25 11:07) COUGH HPI HPI COPD: Details: 64-year-old gentleman, recent approximately 15 pack-year smoker, quit March of 2024 followed for asthma and pulmonary component to dyspnea. He continues on Advair, Combivent, and albuterol MDI. Now he complains of orthopnea and worsening lower extremity edema. [facility] Medical History Hypertension Hypothyroid Osteoarthritis of right knee Surgical History H/O left knee surgery History of cholecystectomy History of tonsillectomy Social History (Updated 09/29/24 @ 14:41 by Etta Dutta [facility]) Alcohol intake: current Alcohol intake frequency: a few times a week Patient Tobacco Use Status: Former Tobacco user Tobacco use type: Cigarette Years Smoked: started at age 23, 0.5PPD, quit 5 months april 2024 Substance Use Type: Marijuana Current occupational status: unemployed Current occupation: right handed Review of Systems Const Denies daytime sleepiness, Denies excessive sweating, Denies fatigue, Denies fever(s), Denies lethargy, Denies malaise, Denies night sweats, Denies snoring and Denies weight loss Eyes Denies blurry vision and Denies itchy eyes ENT Denies nasal congestion, Denies post nasal drip, Denies sinus pain, Denies sinus pressure and Denies other ( Thrush) Card Denies chest pain, Denies pedal edema, Reports leg edema, Denies dyspnea, Reports dyspnea on exertion, Reports orthopnea and Denies paroxysmal nocturnal dyspnea Resp Denies cough, Denies hemoptysis, Denies excessive phlegm production, Denies dyspnea, Reports dyspnea on exertion, Denies snoring and Denies wheezing GI Denies abdominal pain and Denies heartburn Musc Denies myalgias, Denies arthralgias and Denies joint swelling Skin/Breast Denies rash Neuro Denies memory loss and Denies seizure-like activity Psych Denies abnormal sleep pattern, Denies anxiety and Denies memory loss Endo Denies excessive sweating, Denies fatigue and Denies heat intolerance Parag/Lymph Denies easy bruising Aller/Immun Denies itchy eyes, Denies seasonal rhinorrhea and Denies wheezing Physical Exam Vital Signs: Last Vital Signs Pulse 92 08/29/25 11:03 BP 122/62 08/29/25 11:03 Pulse Ox 97 08/29/25 11:03 Oxygen Delivery Method Room Air 08/29/25 11:03 BMI result Body Mass Index 45.9 Const General: no acute distress and alert Nutritional Appearance: obese Orientation/consciousness: Other orientation findings ( oriented) HEENT Head: Yes atraumatic Eyes General: appearance normal, both eyes and all related structures Sclerae: sclerae normal EOM: EOMs intact bilaterally Neck Neck: Yes supple Lymphatic: no lymphadenopathy noted Resp Effort & Inspection: normal respiratory effort and no use of accessory muscles Auscultation: clear to auscultation bilaterally Cardio Rate: regular rate Rhythm: regular rhythm Heart sounds: no gallops, no murmurs and no rubs Skin General skin exam: other ( warm) Extrem General: No clubbing, No cyanosis and Yes edema (1+ bilateral) Assessment & Plan Assessment & Plan (1) Pulmonary emphysema: Code(s): J43.9 - Emphysema, unspecified Category: Medical Plan: Continue current regimen of Advair and Combivent. (2) Orthopnea: Code(s): R06.01 - Orthopnea Category: Medical Plan: Now with worsening orthopnea and lower extremity edema, will start on bumetanide. Medications: New bumetanide 1 mg PO DAILY 30 tabs 6RF Refilled ipratropium-albuterol 20-100 mcg/actuation (Combivent Respimat) 1 puff inhalation QID 4 grams 6RF Z91.09 - Other allergy status, other than to drugs and biological substances Coding Level of Care Code Est Pt Level 4 (32237) Diagnoses Pulmonary emphysema J43.9 Orthopnea R06.01
--- OUTSIDE RECORDS SUMMARY | 2025-08-29 13:24 | XMS_ITS | Clinical Summary ---
Author Organization [facility] Address [address] [place] [phone] Phone Care Team Providers Care Non Profit Financial Controller Name Role Phone Melisa Rizvi MD Primary Care Provider [phone] Allergies Active Allergy Reactions Criticality Noted Date Comments Jaret Inhibitors 01/30/2006 Metformin 12/14/2013 [place] hot Penicillin G Potassium 08/29/2005 Medications ipratropium-alb uteroL (Combivent Respimat) 20-100 mcg/actuation inhaler Inhale 20 mcg into the lungs 3 times daily as needed (wheezing) . 3 Active albuterol HFA (PROAIR HFA ; PROVENTIL HFA ; VENTOLIN HFA) 90 mcg/actuation inhaler Inhale 2 Puffs into the lungs every 4 hours as needed for Cough or Wheezing. 3 Active fluticasone propion-salmete roL (ADVAIR HFA) 230-21 mcg/actuation inhaler 5 Active levothyroxine (SYNTHROID, LEVOTHROID) 50 mcg tablet Take 1 tablet (50 mcg total) by mouth 1 (one) time each day before breakfast. 90 each 1 5 Active hydroCHLOROthia zide (HYDRODIURIL) 50 mg tablet Take 1 tablet (50 mg total) by mouth at bedtime. 90 each 5 Active atorvastatin (LIPITOR) 20 mg tablet Take 1 tablet (20 mg total) by mouth at bedtime. 90 each 5 Active amLODIPine (NORVASC) 10 mg tablet Take 1 tablet (10 mg total) by mouth at bedtime. 90 each 1 5 Active allopurinoL (ZYLOPRIM) 300 mg tablet Take 1 tablet (300 mg total) by mouth 1 (one) time each day. 90 tablet 1 5 Active metoprolol succinate (TOPROL-XL) 25 mg 24 hr tablet Take 1 tablet (25 mg total) by mouth 1 (one) time each day. 90 tablet 1 5 Active valsartan (DIOVAN) 320 mg tablet Take 1 tablet (320 mg total) by mouth at bedtime. 90 tablet 5 Active valsartan (DIOVAN) 320 mg tablet Take 1 tablet (320 mg total) by mouth at bedtime. 90 each 5 08/26/20 25 Discontinued Active Problems Problem Noted Date Diagnosed Date Type 2 diabetes mellitus wit h peripheral vascular disease ([facility] V24, [facility] V28) 09/01/2024 Type 2 diabetes mellitus wit h neurologic complication ([facility] V24, [facility] V28) 09/01/2024 COPD (chronic obstructive pu lmonary disease) ([facility] V24, [facility] V28) 06/15/2024 Multiple rib fractures 02/10/2023 Overview (09/01/2024): 05/16 Loculated effusion, total decortication Last Assessment & Plan: Mr. Castaneda is a 62 y/o male who is S/P left VATS converted to open thoracotomy with total decortication. He presents for follow up CXR and evaluation. 1. He is recovering well from the decortication. CXR is stable and images reviewed with patient. 2. Due to his recent fall, offered him a CT scan to reevaluate ribs but he declined. 3. Dyspnea - patient has a follow up Pulmonary visit on June 06, 2023. Instructed him to obtain a pulse oximeter and keep track of O2 sats at home especially at bedtime. Bring information to Pulmonary visit @ Dr. Huizar's office. He may need an alternative to his current CPAP device as well as reevaluation of pulmonary symptoms. 4. He was originally prescribed home PT but patient states that he did not receive a phone call. I once again offered but he declined. 5. He is instructed to call office with any questions or concerns. Pleural effusion 02/10/2023 Overview (09/01/2024): Last Assessment & Plan: Mr. Castaneda is a 62 yr. male presenting for their 2 week follow-up status post left VATS converted to thoracotomy total decortication. Patient was instructed to continue exercising and losing weight and to further improve his breathing. His follow-up chest x-ray per review of thoracic surgeon Dr.Laki Magaña does show improvement with continued pleural thickening however no further thoracic surgical intervention is recommended at this time. Was instructed to follow-up with the thoracic surgical department moving forward on a as needed basis and to contact our department should he have any further questions or concerns. Stasis dermatitis of both legs 01/24/2021 Hyperlipidemia 03/30/2020 Tobacco use disorder 08/19/2018 Marijuana use 03/05/2017 DM (diabetes mellitus), type 2 with renal complications ([facility] V24, [facility] V28) 08/22/2015 Microalbuminuria 08/22/2015 Erectile dysfunction 08/22/2015 Morbid obesity with BMI of 4 0.0-44.9, adult ([facility] V24, [facility] V28) 06/08/2013 Elevated LFTs 10/19/2010 Alcohol abuse 10/19/2010 Hypersomnia with sleep apnea 04/06/2007 Overview (09/01/2024): IMO update Last Assessment & Plan: I advised to repeat his sleep study. He refuses. I will do an overnight oximetry. Osteoarthritis of ankle and foot 04/06/2007 Overview (09/01/2024): bilateral Achilles tendontits as well Lung nodules 02/02/2007 Overview (03/01/2025): Lumbosacral spondylosis without myelopathy 08/15 Overview (09/01/2024): some lytic sacral lesions noted on CT, aspirated X2 - benign followed by neurosurgeon Hypothyroidism 07/16/2006 Overview (09/01/2024): Hist Amilcar's Gouty arthropathy 07/16/2006 Overview (09/01/2024): crystal pos, left knee, 2003 ?destructive wrist arthritis IMO update Calculus of kidney 03/27/2006 Urticaria 11/11/2005 Overview (09/01/2024): Thought to be related to Amilcar's throiditis Essential hypertension, benign 02/27/2005 Total knee replacement status Overview (03/01/2025): 08/14 right TKR Encounters Date Type Department Care Team Description 06/27/2025 11:15 AM EDT Office Visit Adult Medicine [address] [phone] Maris Sharma PA Encounter for annual wellness visit (AWV) in Medicare patient (Primary Dx); Type 2 diabetes mellitus with peripheral vascular disease ([facility] V24, [facility] V28); Essential hypertension, benign; Morbid obesity with BMI of 40.0-44.9, adult ([facility] V24, [facility] V28); Mixed hyperlipidemia; Hypersomnia with sleep apnea; Chronic obstructive pulmonary disease, unspecified COPD type ([facility] V24, [facility] V28); Acquired hypothyroidism from Last 3 Months Immunizations Immunization Administration Dates Next Due PPD Test 06/03/2006 Pneumococcal conjugate 20 va len (Prevnar 20, PCV 20) 2mo and older 06/15/2024 Td Tetanus diptheria (Tdvax) 7yo and older 04/03,11/24/2010 Tdap Tetanus diptheria acell ular pertussis (Boostrix; Adacel) 7yo and older 05/21/2022 Surgical History Surgery Date Site/Laterality Comments CHOLECYSTECTOMY TONSILLECTOMY COLONOSCOPY 05/12/09 [facility] diverticulosis and hemorrhoids; repeat in ten years OTHER SURGICAL HISTORY kidney astone procedures TOTAL KNEE ARTHROPLASTY 07/2021 Right Medical History Medical History Date Comments Calculus of kidney 03/27/2006 Gouty arthropathy 07/16/2006 crystal pos, l eft knee, 2003 ?destructive wrist arthritis Lumbosacral spondylosis with out myelopathy 08/15/2006 some lytic sacral lesions no jacob on CT, aspirated X2 - benign followed by neurosurgeon Hypersomnia with sleep apnea , unspecified 6.09.05 Essential hypertension, benign 4.06.05 Morbid obesity ([facility] V24, [facility] V28) 06/08/2013 Proteinuria 08/22/2015 Erectile dysfunction 08/22/2015 Total knee replacement status 10/01/2021 right TKR COPD (chronic obstructive pu lmonary disease) ([facility] V24, [facility] V28) 06/15/2024 Urticaria 11/11/2005 Thought to be re lated to Amilcar's throiditis Hypothyroidism 07/16/2006 Hist Amilcar's Lung nodules 02/02/2007 DM (diabetes mellitus), type 2 with renal complications ([facility] V24, [facility] V28) 08/22/2015 Type 2 diabetes mellitus wit h peripheral vascular disease ([facility] V24, [facility] V28) 09/01/2024 Type 2 diabetes mellitus wit h neurologic complication ([facility] V24, [facility] V28) 09/01/2024 Family History Medical History Relation Name Comments Kidney failure Father Diabetes Mother Relation Name Status Comments Father Mother Social History Tobacco Use Types Packs/Day Years Used Date Smoking Tobacco: Former Cigarettes Q uit: 02/05/2023 Smokeless Tobacco: Never Tobacco Cessation:Counseling Given: Not Answered Alcohol Use Standard Drinks/Week Comments Never 0 (1 standard drink = 0.6 oz pur e alcohol) Housing Instability Answer Date Recorde d Are you worried that in the next 2 months you may not have stable housing? No 06/27/2025 Food Access & Nutrition Answer Date Rec orded Do you have access to a vari ety of food including fruits and vegetables? Yes 06/27/2025 Access to Healthcare Answer Date Record ed Within the last 3 months, ho w many times did you visit the emergency department for your medical care? 0 06/27/2025 Health Literacy Answer Date Recorded How often do you need to hav e someone help you when you read instructions, pamphlets, or other written material from your doctor or pharmacy? Never 06/27/2025 Caregiver: How often do you need to have someone help you when you read instructions, pamphlets, or other written material from your doctor or pharmacy? Not on file 06/27/2025 Financial Risk Answer Date Recorded How hard is it for you to pa y for the very basics like food, housing, medical care, and air conditioning / heating? Somewhat hard 06/27/2025 Transportation Answer Date Recorded Has the lack of transportati on kept you from meetings, work, or from getting things needed for daily living? No Has the lack of transportati on kept you from medical appointments or from getting medications? No 06/27/2025 Social Isolation Answer Date Recorded How often do you feel lonely or isolated from those around you? Sometimes 06/27/2025 Food Risk Answer Date Recorded Within the past 12 months we worried whether our food would run out before we got money to buy more. Sometimes true 025 Within the past 12 months th e food we bought just didn't last and we didn't have money to get more. Sometimes true 06/27/2025 Dependent Care Answer Date Recorded Do you need help finding or paying for care for your loved ones. For example, children's counselor or elderly care for an older adult? No 06/27/2025 Education Answer Date Recorded Do you think completing more education or training, like finishing a GED, going to college, or learning a trade, would be helpful for you? N/A 06/27/2025 Employment and Income Answer Date Recor ded During the last four weeks, have you been actively looking for work? No 06/27/2025 Living Situation Answer Date Recorded What is your living situation? Unrecognized valu e 06/27/2025 Sex and Gender Information Value Date Recorded Sex Assigned at Not on file Legal Sex Male 3:39 AM EST Gender Identity Not on file Sexual Orientation Not on file Obstetrics History Last Filed Vital Signs Vital Sign Reading Time Taken Comments Blood Pressure 100/59 06/27/2025 11:26 AM EDT Pulse 81 06/27/2025 11:26 AM EDT Temperature 35.8 C (96.4 F) 06/27/2025 11:26 AM EDT Respiratory Rate 14 06/27/2025 11:26 AM EDT Oxygen Saturation 94% 06/27/2025 11:26 AM EDT Inhaled Oxygen Concentration - - Weight 162 kg (358 lb) 06/27/2025 11:26 AM EDT Height 190.5 cm (6' 3 ) 06/27/2025 11:26 AM EDT Body Mass Index 44.75 06/27/2025 11:26 AM EDT Plan of Treatment Upcoming Encounters Date Type Department Care Team (Late st Contact Info) Description 11/02/2025 12:45 PM EST Office Visit Adult Medicine [facility] [address] [place], [place] [phone] Melisa Rizvi MD [address] [place], [place] Health Maintenance Due Date Last Done Comments Colorectal Cancer Screening: Colonoscopy 1958 Diabetes: Annual Foot Exam 1968 Diabetes: Annual Retina Eye Exam 1968 Hepatitis A Vaccines (1 of 2 - Risk 2-dose series) 1977 Zoster Vaccines (1 of 2) 1977 RSV Immunization Adult Patients (1 - Risk 60-74 years 1-dose series) 2018 COVID-19 Vaccine (3 - Moderna risk series) 09/05/2021 08/08/2021, 07/11/2021 Influenza Vaccine (#1) 2025 Diabetes: Blood Sugar Control Test (HGBA1C) 12/28/2025 06/27/2025, 03/02/2025, 05/31/2024, Additional history exists Diabetes: Annual Urine Albumin-Creatinine Ratio (uACR) 03/02/2026 03/02/2025, 05/31/2024 Diabetes: Annual GFR (Glomerular Filtration Rate) 03/02/2026 03/02/2025, 05/31/2024, 05/31/2024 Hypertension/CHF/CAD Annual BMP Blood Test 03/02/2026 03/02/2025, 05/31/2024, 05/31/2024 Falls Risk Assessment 06/27/2026 06/27/2025, 024 Medicare Annual Wellness Visit 06/27/2026 06/27/2025 Social Influencers of Health Screening 06/27/2026 06/27/2025 Cholesterol Screening (Lipid Panel) 03/02/2030 03/02/2025, 05/31/2024, 05/31/2024 DTaP,Tdap,and Td Vaccines (4 - Td or Tdap) 05/21/2032 05/21/2022, 04/03/2022, 11/24/2010 Hepatitis C Screening Completed 12/09/2013 Abdominal Aortic Aneurysm (AAA) Screen Completed 05/17/2024 Pneumococcal Vaccine: 50+ Years Completed 06/15/2024 Depression Screening Completed 06/27/2025 HIB Vaccines Aged Out No longer eligi ble based on patient's age to complete this topic HPV Vaccines Aged Out No longer eligi ble based on patient's age to complete this topic Hepatitis B Vaccines Aged Out No long er eligible based on patient's age to complete this topic IPV Vaccines Aged Out No longer eligi ble based on patient's age to complete this topic MMR Vaccines Aged Out No longer eligi ble based on patient's age to complete this topic Meningococcal ACWY Vaccine Aged Out N o longer eligible based on patient's age to complete this topic Meningococcal B Vaccine Aged Out No l onger eligible based on patient's age to complete this topic RSV Immunization Patients Under 20 months Aged Out No longer eligible based on patient's age to complete this topic Varicella Vaccines Aged Out No longer eligible based on patient's age to complete this topic Procedures Procedure Name Priority Date/Time Associated Diagnosis Comments HEMOGLOBIN A1C Routine 06/27/2025 12:10 PM EDT Type 2 diabetes mellitus with peripheral vascular disease ([facility] V24, [facility] V28) MICROALBUMIN CREATININE URINE RATIO Routine 03/02/2025 10:02 AM EDT Type 2 diabetes mellitus with diabetic microalbuminuria, without long-term current use of insulin (CMS/HCC V24, CMS/HCC V28) COMPREHENSIVE METABOLIC PANEL Routine 03/02/2025 10:02 AM EDT Essential hypertension, benign Type 2 diabetes mellitus with diabetic microalbuminuria, without long-term current use of insulin (CMS/HCC V24, CMS/HCC V28) LIPID PANEL WITH REFLEX TO DIRECT LDL Routine 03/02/2025 10:02 AM EDT Other hyperlipidemia FALLS RISK ASSESSMENT Routine 05/17/2024 HEPATITIS C SCREENING Routine 12/09/2013 from Last 3 Months or Most Recently Relevant to Health Maintenance Results * (ABNORMAL) Hemoglobin A1c (06/27/2025 12:10 PM EDT) Pathologist [facility] Hemoglobin A1C 7.4(H) <6.5 % LAB CHEMISTRY METHOD 06/27/2025 9:59 PM EDT [facility] Mean Bld Glu Estim. 166 mg/dL LAB CHEMISTRY METHOD 06/27/2025 9:59 PM EDT [facility] Blood Venous blood specimen / Unknown Venipuncture / Unknown 06/27/2025 12:10 PM EDT 06/27/2025 12:10 PM EDT us Maris COREA LAB BLOOD ORDERABLES Final Re sult [facility] [address] [place] [address], [place] [phone] * Lipid panel with reflex to direct LDL (03/02/2025 10:02 AM EDT) [facility] Cholesterol 150 0 - 200 mg/dL LAB CHEMISTRY METHOD 03/02/2025 3:00 PM T [facility] Triglycerides 106 0 - 150 mg/dL LAB CHEMISTRY METHOD 03/02/2025 3:00 PM T [facility] HDL 51 >=40 mg/dL LAB CHEMISTRY METHOD 03/02/2025 3:00 PM EDT [facility] LDL Calculated 78 0 - 100 mg/dL LAB CHEMISTRY METHOD 03/02/2025 3:00 PM EDT [facility] VLDL Cholesterol Jd 21.2 mg/dL LAB CHEMISTRY METHOD 03/02/2025 3:00 PM [facility] Non HDL Chol. (LDL+VLDL) 99 <145 mg/dL LAB CHEMISTRY METHOD 03/02/2025 3:00 PM EDT [facility] Chol/HDL Ratio 2.9 0.0 - 4.4 LAB CHEMISTRY METHOD 03/02/2025 3:00 PM EDT [facility] Blood Venous blood specimen / Unknown Venipuncture / Unknown 03/02/2025 10:02 AM EDT 03/02/2025 10:02 AM EDT us Melisa Rizvi MD LAB BLOOD ORDERABLES Final Resul t Performing Organization Address City/[facility]/ZIP Co de Phone Number [facility] [address] [place] [address], [place] [phone] * (ABNORMAL) Microalbumin creatinine urine ratio (03/02/2025 10:02 AM EDT) Creatinine, Urine 150.0 mg/dL LAB CHEMISTRY METHOD 03/02/2025 4:43 PM EDT [facility] Microalb, Ur 34.5(H) 0.0 - 29.0 mg/L LAB CHEMISTRY METHOD 03/02/2025 4:43 PM EDT [facility] Microalb/Crea t Ratio 23 <30 mg/g creat LAB CHEMISTRY METHOD 03/02/2025 4:43 PM EDT [facility] Urine Urine specimen obtained by clean catch procedure / Unknown Non-blood Collection / Unknown 03/02/2025 10:02 AM EDT 03/02/2025 10:02 AM EDT us Melisa Rizvi MD LAB URINE ORDERABLES Final Resul t Performing Organization Address City/[facility]/ZIP Co de Phone Number [facility] [address] [place] [address], [place] [phone] * (ABNORMAL) Comprehensive metabolic panel (03/02/2025 10:02 AM EDT) Sodium 139 133 - 145 mmol/L LAB CHEMISTRY METHOD 03/02/2025 3:02 PM EDT [facility] Potassium 3.9 3.5 - 5.5 mmol/L LAB CHEMISTRY METHOD 03/02/2025 3:02 PM [facility] Chloride 102 96 - 110 mmol/L LAB CHEMISTRY METHOD 03/02/2025 3:02 PM [facility] CO2 29 21 - 32 mmol/L LAB CHEMISTRY METHOD 03/02/2025 3:02 PM [facility] Anion Gap 8 3 - 11 LAB CHEMISTRY METHOD 03/02/2025 3:02 PM [facility] Glucose 156(H) 70 - 100 mg/dL LAB CHEMISTRY METHOD 03/02/2025 3:02 PM [facility] BUN 17 5 - 25 mg/dL LAB CHEMISTRY METHOD 03/02/2025 3:02 PM [facility] Creatinine 1.02 0.70 - 1.30 mg/dL LAB CHEMISTRY METHOD 03/02/2025 3:02 PM [facility] eGFR 81 >=60 mL/min/1. 73m2 LAB CHEMISTRY METHOD 03/02/2025 3:02 PM [facility] Comment:Calculation based on the Chronic Kidney Disease Epidemiology Collaboration (CKD-EPI) equation refit without adjustment for race. BUN/Creatinine Ratio 16.7 LAB CHEMISTRY METHOD 03/02/2025 3:02 PM [facility] Calcium 9.5 8.5 - 10.5 mg/dL LAB CHEMISTRY METHOD 03/02/2025 3:02 PM [facility] AST (SGOT) 27 10 - 42 unit/L LAB CHEMISTRY METHOD 03/02/2025 3:02 PM [facility] ALT (SGPT) 34 10 - 60 unit/L LAB CHEMISTRY METHOD 03/02/2025 3:02 PM [facility] Alkaline Phosphatase 125(H) 42 - 121 unit/L LAB CHEMISTRY METHOD 03/02/2025 3:02 PM [facility] Total Protein 7.9 6.0 - 8.0 g/dL LAB CHEMISTRY METHOD 03/02/2025 3:02 PM EDT [facility] Albumin 3.7 3.2 - 5.0 g/dL LAB CHEMISTRY METHOD 03/02/2025 3:02 PM EDT [facility] Total Bilirubin 0.7 0.0 - 1.4 mg/dL LAB CHEMISTRY METHOD 03/02/2025 3:02 PM EDT [facility] Blood Venous blood specimen / Unknown Venipuncture / Unknown 03/02/2025 10:02 AM EDT 03/02/2025 10:02 AM EDT Melisa Rizvi MD LAB BLOOD ORDERABLES Final Resul t [facility] [address] [place] [address], * Falls Risk Assessment (05/17/2024) Falls Risk Assessment abstracted Historical Provider HEALTH MAINTENANCE Final Result * Hepatitis C Screening (12/09/2013) Pathologist [facility] Hepatitis C Screening abstracted Historical Provider HEALTH MAINTENANCE Final Result from Last 3 Months or Most Recently Relevant to Health Maintenance Insurance [employer] MED[employer]ARE [employer]VANTAGE MEDICAID - [place] Care Teams Non Profit Financial Controller Relationship Specialty Start Date End Date Melisa Rizvi MD [address] [place] [phone] PCP - General Internal Medicine 07/03/21
--- OUTSIDE RECORDS SUMMARY | 2025-08-29 13:24 | XMS_ITS ---
Author Name [facility] Organization [facility] Care Team Organization Name Specialty Phone Email Start Date End Da te [facility] Melisa Rizvi Primary Care 10/01/2022 4
== END 2025-08-29 11:25 | disposition home or self-care (01) ==
LOC: HO.HPS 11:00
PROVIDERS: PCP Internal Medicine; Visit Provider Internal Medicine Pulmonary Disease
DX: J43.9 Emphysema, unspecified (principal); R06.01 Orthopnea
CPT/HCPCS: 99214

== ENCOUNTER → 2025-08-29 10:59 | Outpatient (BNVA) | payer MEDICARE, MEDICAID, SELFPAY | PROVIDERS: PCP Internal Medicine; Visit Provider Internal Medicine Pulmonary Disease | DX: J43.9 Emphysema, unspecified (principal); R06.01 Orthopnea | CPT/HCPCS: 99212 ==

== ENCOUNTER 2025-09-23 12:18 | Emergency (ER) | payer MEDICARE, MEDICAID, SELFPAY ==
--- NOTE | ~2025-09-23 | CT_ITS ---
EXAMINATION: CT ANGIOGRAM CHEST CLINICAL INFORMATION: Shortness of breath. COMPARISON: Correlated to x-ray dated September 23, 2025. TECHNIQUE: Multiple axial images were obtained through the chest after the administration of 65 mL of Omnipaque 350 intravenous contrast. Extensive vascular post-processing including two-dimensional and three-dimensional reformatted images were created and reviewed on an independent workstation. SmartPrep technique. This CT examination was performed using dose optimization techniques as appropriate, variously including the following: *Automated exposure control *Adjustment of mA and/or kV according to patient size (this includes techniques or standardized protocols for targeted exams where dose is matched to indication/reason for exam; i.e. extremities or head) *Use of iterative reconstruction technique DLP: 672 mGy-cm FINDINGS: Inadequate smart prepped technique. There is equal IV contrast enhancement of the main pulmonary artery and the thoracic aorta. Normal patency of the main pulmonary artery and its main left and right branches and the subsegmental pulmonary branches without gross intraluminal filling defects. No aneurysm or dissection, thoracic aorta. Calcified plaques in the coronary arteries and the thoracic aortic wall as well as its main branches. Mild prominent, nonspecific mediastinal lymph nodes. Pulmonary patchy groundglass and linear attenuation pain, both lower lung lobes and to a lesser extent lingula. No bronchiectasis or honeycombing. No pleural effusion. Small pericardial effusion. No pneumomediastinum. No hemothorax. No pneumothorax. No gross pleural effusion. Calcified pleural plaques in the lower left hemithorax. Liver and spleen are enlarged. Mixed plaques throughout the abdominal aorta wall. Calcified plaques in the included mesenteric arteries and main renal arteries. Exophytic cystic lesion in the upper pole right kidney. Status post cholecystectomy. Old traumatic deformities in the posterior lateral aspect of the ribs in the left hemithorax. The upper airway is patent. Multilevel spondylosis throughout the axial skeleton without acute fracture or listhesis. There is an intraosseous hemangioma at L1.. CT/CT angio chest PE protocol IMPRESSION: No acute pulmonary artery emboli. No aneurysm or dissection, thoracic aorta. Atelectasis versus scarring in the lower lung lobes and lingula. Old traumatic deformity in the ribs left hemithorax and calcified pleural plaque left lower hemithorax likely related to prior trauma and/or surgery. Probable hepatosplenomegaly. Fleischner guidelines were followed. Electronically signed by: Arsenio Lovett MD 09/23/2025 02:52 PM EDT RP
--- NOTE | ~2025-09-23 | XR_ITS ---
EXAMINATION: XR CHEST CLINICAL INFORMATION: short of breath, leg swelling COMPARISON: Previous chest x-rays most recently October 2019 TECHNIQUE: 2 views of the chest were obtained. FINDINGS: Increased linear markings at the left lung base just above scarring or subsegmental atelectasis. The right lung is clear. No consolidation or pulmonary edema. There is left pleural calcification along the diaphragmatic surface. There is interval increase in small left pleural effusion or pleural thickening at the costophrenic angle and laterally adjacent to the left mid lung. No right pleural effusion. No pneumothorax. The cardiac and mediastinal contours are stable. Degenerative changes of the spine. Question evidence of left sixth and seventh rib fractures. These appear old but new in the interval from 2019. XR/XR chest 2V IMPRESSION: Interval increase in scarring or subsegmental atelectasis at the left lung base and small left pleural effusion or thickening. This may be related to old left posterior lateral sixth and seventh rib fractures. There is also left diaphragmatic pleural calcification and asbestos related pleural disease should also be considered. This could be better evaluated with chest CT if clinically warranted. Electronically signed by: Viridiana Gibson MD 09/23/2025 01:26 PM EDT
[2025-09-23 12:20] VITALS: BP 168/94; PULSE 80; RESP 22; TEMP 36; O2SAT 97; BMI 45.0
--- NOTE | 2025-09-23 12:22 | ECG_ITS ---
Test Reason : shortness of breath Blood Pressure : */* mmHG Vent. Rate : 73 BPM Atrial Rate : 73 BPM P-R Int : 174 ms QRS Dur : 100 ms QT Int : 366 ms P-R-T Axes : 30 -33 5 degrees QTcB Int : 403 ms Normal sinus rhythm Left axis deviation Cannot rule out Anterior infarct , age undetermined Abnormal ECG When compared with ECG of 29-Oct-2019 15:49, Minimal criteria for Anterior infarct are now Present Referred By: Sydnee Zhao Electronically Signed By: NEELIMA ONEILL
--- NOTE | 2025-09-23 12:23 | ED.GENADULT ---
HPI - General Adult General Chief complaint: Dyspnea Stated complaint: SOB Sent By Dr Clark Time Seen by Provider: 09/23/25 12:42 Source: patient, family, RN notes reviewed and old records reviewed Mode of arrival: ambulatory Limitations: no limitations History of Present Illness ED Provider: Nova Castaneda PA-C HPI narrative: 65-year-old male with past medical history significant for pulmonary emphysema, recurrent pleural effusions status post rib fractures from 1 year ago, VIC untreated, alcohol use, and obesity. Patient is accompanied by his daughter. For the past week he reports having a dry cough not associated with any fevers chills or sweats nasal congestion sore throat or abdominal discomfort. Over this past week he has had increasing shortness of breath with exertion along with orthopnea he can only breathe the most easy to breath while sitting up straight or standing. Sharma years ago he tried to use a CPAP machine but doing to feeling claustrophobic he has not been compliant with this. Patient denies any falls or trauma. Last year he did have a slip and fall which resulted in multiple rib fractures and him being hospitalized with a chest tube. He denies any sick contacts. He does not needed to use an inhaler in any way. He has not taken anything for his cough. NO hx of HF. HE was started on bumex on 08/29 for the 'fluid in my legs' by his PCP. 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 He continues on Advair, Combivent, and albuterol MDI. Now he complains of orthopnea and worsening lower extremity edema'. Seen by Dr. Clark: He had 1+ pitting edema, started on bumetanide 1mg daily for 30 days with 6 RFs given. Related Data Home Medications ?Medication ?Instructions ?Recorded ?Confirmed allopurinol 300 mg tablet 300 mg PO DAILY 01/04/21 11/30/24 amlodipine 10 mg tablet 10 mg PO DAILY 01/04/21 11/30/24 levothyroxine 50 mcg tablet 50 mcg PO DAILY 01/04/21 11/30/24 Previous Rx's ?Medication ?Instructions ?Recorded cyclobenzaprine 10 mg tablet 10 mg PO TID PRN muscle spasm #14 02/08/21 tabs fluticasone propionate 230 2 puff inhalation Q12H #12 grams 11/30/24 mcg-salmeterol 21 mcg/actuation HFA inhaler (Advair HFA) bumetanide 1 mg tablet 1 mg PO DAILY #30 tabs 08/29/25 ipratropium 20 mcg-albuterol 100 1 puff inhalation QID #4 grams 08/29/25 mcg/actuation mist for inhalation (Combivent Respimat) Allergies Allergy/AdvReac Type Severity Reaction Status Date / Time Penicillins (PCN) Allergy Intermediate HIVES Verified 09/23/25 12:23 CYNDIE Inhibitors (CYNDIE Allergy Mild COUGH Verified 09/23/25 12:23 INHIBITORS) Review of Systems Review of Systems: Yes all other systems are reviewed and are negative [facility] Past Medical History Attestation statement: The following information was validated with the patient. Source: old records reviewed, obtained from family and nursing notes reviewed Medical History Osteoarthritis of right knee Hypothyroid Hypertension Surgical History H/O left knee surgery History of tonsillectomy History of cholecystectomy Social History Social History Alcohol intake: current Alcohol intake frequency: holidays/special occasions only Patient Tobacco Use Status: Former Tobacco user Tobacco use type: Cigarette Years Smoked: started at age 23, 0.5PPD, quit 5 months april 2024 Use of substances other than those prescribed or required for medical reasons: Yes Substance Use Type: Marijuana Substance Use Frequency: Weekly Last Used Substance: Days (ago) Any prior treatment program specific to substance use: No Advance Directives: No Advance Directives Information Provided: No Do you have a plan to hurt others: No Plan Current occupational status: unemployed Current occupation: right handed Physical Exam ED Exam Exam: General: Appears in no acute distress, appears well nourished body habitus is morbid obese, appears stated age. No septic or ill-appearing. Vitals reviewed normal, PMH/Social and Surgical hx reviewed including allergies and current medications. - reviewed for prior visits here Head: Normocephalic, no obvious trauma or skin lesions noted. Eyes: EOMI, pale skin warm and well-perfused ENMT: moist oral mucosa Neck: trachea midline Cardiovascular: peripheral perfusion normal, Regular heart rate Respiratory: no respiratory distress Abdomen: Obese abdomen nontender Extremities: warm and moving without difficulty, +2 pitting edema bilateral lower extremities with hyperpigmentation noted a large anterior shins Psych: Cooperative Neuro: Alert and oriented. Vital Signs: Vital Signs - 24 hr 09/23/25 12:20 09/23/25 14:49 Temperature 96.8 F 98.4 F Pulse Rate 80 77 Respiratory Rate 22 H 18 Blood Pressure 168/94 H 124/78 Pulse Oximetry 97 95 Oxygen Delivery Method Room Air Room Air BMI result Body Mass Index 45.0 Course Course Course Narrative: This is a Rapid Medical Examination (RME) performed by Corie Zhao PA-C in triage. Full HPI, ROS, assessment and treatment plan per primary provider in the Main ED. Hx: 65 yo M hx hypothyroid, HTN, pleural effusion, COPD not on supplemental O2 follows w/ stefanie here for eval of increasing SOB, orthopnea, and dry cough x weeks. endorses b/l LE swelling. recently started on a water pill. PE/vitals: increased effort of breathing, speaking in complete sentences, no wheezes or rhonchi Plan: labs, cxr, ekg Medications Administered Discontinued Medications Generic Name Dose Route Start Last Admin Trade Name Freq PRN Reason Stop Dose Admin Iohexol 100 ml 09/23/25 14:27 09/23/25 14:27 Iohexol 350 Mg/Ml 100 Ml Infus..Btl IV 09/23/25 14:28 65 ml ONCE ONE Administration Medical Decision Making Medical Decision Making [facility] Narrative: 65 y/o M presenting for SOB with exertion and orthopnea for the past week worse over last day. PMH sig for obesity, emphysema, HTN, and untreated VIC. Upon arrival to ED he is mildly tachypneic (22) and hypertensive (168/94) but not breathless or appearing in any acute respiratory distress. He denies cp. He is afebrile saturating 97% on RA. His lungs are CTAB. SUspect potential cardiac etiology. He received RME with labs and imaging ordered. Will defer broncho therapy as he is not hypoxic and his lungs are without wheezing. He does not appear ill or septic. Labs without leukocytosis. Initial troponin is 36.2, no NSTEMI or STEMI on initial EKG. Will repeat to trend. NT proBNP was not ran. spoke to chem, they will repeat as add on. Troponins without significant delta, ACS can be ruled out. Not likely PFO as he his sob does not improve with supine positioning. He is not hypoxic at rest or with ambulation. CXR with small pleural effusion vs atelectasis in left base, chronic when compared to reports from [facility] (patient able to access his portal and share results)- this is where he had prior rib fractures results in [facility]. Given sob, will go straight to CTA of chest for better visualization of aorta and to further assess effusion, and for rule out PE. Patient's NTproBNP is < 300. Overall he does appear fluid overloaded in his limbs. He is showing signs of early heart failure without acute cardiac tissue injury type I or II. He has already recently been started on Bumex outpatient and I suspect this largely has influenced his labs today, but discussed my presumption with patient about his current symptoms and the need for lifestyle changes and cardiac follow up. He is established with [facility] and endorses his wishes to follow up with their cardiology team. I will put ours in dispo too just in case. CTA without concerning findings, PNA and PE and aortic dissection can be ruled out. No infectious etiology. Patient will continue his BUMEX 1 mg daily, wear compression stockings and call PCP for cards referral to [facility]. He has also been strongly encouraged to make dietary changes and to return to ED should his condition or sxs worsen. Ideally he could take his BUMEX twice a day for the next 5 days. He has been instructed of this Differential Diagnosis Differential Diagnoses: The differential diagnosis associated with the presentation includes New onset CHF NM COPD exacerbation pneumonia physical deconditioning Admission/Observation Consideration of admission/observation: Escalation of care including admission/observation considered Labs today do not demonstrated immediate life threatening etiology at this time, stable. Lab Data MDM Lab Attestation statement: I reviewed the patient's lab results. 09/23/25 13:01 09/23/25 13:01 Labs: Lab Results 09/23/25 09/23/25 09/23/25 Range/Units 13:01 13:01 15:06 WBC 7.2 (4.8-10.8) X10*3/uL RBC 5.08 (4.60-5.80) X10*6/uL Hgb 13.9 L (14.0-18.0) g/dl Hct 43.0 (42.0-52.0) % MCV 84.6 (80.0-98.0) fL MCH 27.4 (27.0-33.0) pg MCHC 32.3 (31.0-36.0) g/dl RDW 14.5 (11.0-16.0) % Plt Count 227 (160-400) X10*3/uL MPV 10.0 (9.4-12.4) fL Immature Gran % (Auto) 0.1 (0.0-0.4) % Neut % (Auto) 55.4 (45-73) % Lymph % (Auto) 30.6 (20-40) % [place] % (Auto) 7.5 (2-11) % Eos % (Auto) 5.7 H (0-4) % Baso % (Auto) 0.7 (0-2) % Lymph # (Auto) 2.2 (1.2-4.9) X10*3/uL [place] # (Auto) 0.5 (0.1-1.2) X10*3/uL Eos # (Auto) 0.4 (0.0-0.4) X10*3/uL Baso # (Auto) 0.1 (0.0-0.2) X10*3/uL Abs Immat Gran (auto) 0.01 (0.00-0.03) X10*3/uL Absolute Neuts (auto) 4.0 (2.0-8.3) x10*3/uL Absolute Nucleated RBC 0.000 (0.0-0.012) X10*3/uL Nucleated RBC % (auto) 0.0 (0.0-0.2) /100WBC Sodium 137 (135-145) mmol/L Potassium 4.1 (3.3-5.1) mmol/L Chloride 105 (96-108) mmol/L Carbon Dioxide 27 (22-29) mmol/L Anion Gap 9 L (12-20) BUN 13 (9-16) mg/dL Creatinine 1.01 (0.5-1.4) mg/dL Estim Creat Clear Calc 116.4 Estimated GFR > 60 Random Glucose 162 H (60-115) mg/dL Calcium 9.0 (8.4-10.2) mg/dL Magnesium 2.0 (1.6-2.6) mg/dL Total Bilirubin 0.7 (0.0-1.0) mg/dL AST 30 (5-37) U/L ALT 25 (0-40) U/L Alkaline Phosphatase 116 (39-117) U/L Troponin I High Sens 36.2 H 39.8 H (<3.5-35.0) ng/L NT-Pro-B Natriuret Pep Cancelled 213.1 Total Protein 7.9 (6.5-8.0) g/dL Albumin 4.2 (3.5-5.0) g/dL Independent Interpretation I performed an independent interpretation of an: EKG and CT Scan Radiology Impression Discussion of test interpretation with radiology: I have reviewed the radiologist's reading. Independent Historian Clinical information obtained from an independent historian. History obtained from or confirmed by: Other (daughter, significant other) External Record Review External record reviewed: Outpatient record, Prior outpatient labs, Prior outpatient radiology and Primary care record Viewed on patient portal Tests considered The following testing was considered but not selected: echo- informal bedside down without pericardial effusion, or sig wall motion abnormality, not formal. Prescription Management I considered prescription management with: Other HE was recently started on bumex. Chronic Conditions Patient?s care impacted by: Hypertension and Other (obesity) Social Determinants Patient?s care significantly limited by Social Determinants of Health including: Low income, Alcoholism and drug addiction in family, Problems related to employment and Other Social Determinant of Health Discharge Plan Discharge Clinical Impression: Orthopnea Patient Disposition: Home, Self-Care Instructions: Dyspnea (ED) Additional Instructions: You were seen in the emergency department today for sob that is worse when you are lying down. You have untreated sleep apnea. I recommend going for a repeat sleep study. There are different mechanisms besides CPAP machines to help now. You had acute coronary syndrome (heart attack), pulmonary embolism (clot), aortic dissection, and pneumonia ruled out. You are already on a water pill bumetadine . Your heart failure marker was not showing any exacerbation of your heart today but this is likely because you were starting on this medication three weeks ago. Please continue this. You should have a formal outpatient echocardiogram done. Followup with cardiology. Return for any chest pain or worsening shortness of breath. You have been sent home with an incentive spirometer please try to use this at least 5 times a day. Please wear compression stockings and elevate your legs as much as possible. Prescriptions: No Action cyclobenzaprine 10 mg tablet 10 mg PO TID PRN (Reason: muscle spasm) Qty: 14 0RF amlodipine 10 mg tablet 10 mg PO DAILY allopurinol 300 mg tablet 300 mg PO DAILY levothyroxine 50 mcg tablet 50 mcg PO DAILY fluticasone propion-salmeterol [Advair HFA] 230-21 mcg/actuation HFA aerosol inhaler 2 puff inhalation Q12H Qty: 12 6RF bumetanide 1 mg tablet 1 mg PO DAILY Qty: 30 6RF Combivent Respimat 20-100 mcg/actuation mist 1 puff inhalation QID Qty: 4 6RF Referrals: [facility] [Provider Group] Referral Note: consider echo Melisa Rizvi MD [Primary Care Provider, Internal Medicine] Referral Note: referral to cardiology QIAN please, needs echo and stress test Interventions: ED Discharge Assessment Last Done: 09/23/25 16:05 Discharge Date/Time: 09/23/25 16:08 Print Language: Stateless
[2025-09-23 13:05] LABS: MANUAL DIFF FLAG NO
[2025-09-23 13:06] LABS: Hematocrit 43.0 % (42.0-52.0); Hemoglobin 13.9 g/dl (14.0-18.0); Imm Gran Abs Auto 0.01 X10*3/uL (0.00-0.03); Imm Gran Pct Auto 0.1 % (0.0-0.4); Lymphocytes Absolute Auto 2.2 X10*3/uL (1.2-4.9); Mean Corpuscular HGB Conc 32.3 g/dl (31.0-36.0); Mean Corpuscular Hemoglobin 27.4 pg (27.0-33.0); Mean Corpuscular Volume 84.6 fL (80.0-98.0); NRBC Abs Auto 0.000 X10*3/uL (0.0-0.012); NRBC Pct Auto 0.0 /100WBC (0.0-0.2); Platelet Count 227 X10*3/uL (160-400); Red Blood Count 5.08 X10*6/uL (4.60-5.80); White Blood Count 7.2 X10*3/uL (4.8-10.8)
[2025-09-23 13:20] LABS: Alanine Aminotransferase 25 U/L (0-40); Albumin Level 4.2 g/dL (3.5-5.0); Alkaline Phosphatase 116 U/L (39-117); Anion Gap 9 (12-20); Aspartate Amino Transferase 30 U/L (5-37); Blood Urea Nitrogen 13 mg/dL (9-16); Calcium 9.0 mg/dL (8.4-10.2); Carbon Dioxide 27 mmol/L (22-29); Chloride 105 mmol/L (96-108); Creatinine Clr Calc Pharmacy 116.4; Estimated Glomerular Filt Rate > 60; Magnesium 2.0 mg/dL (1.6-2.6); Potassium 4.1 mmol/L (3.3-5.1); Sodium 137 mmol/L (135-145); Total Protein 7.9 g/dL (6.5-8.0)
[2025-09-23 13:28] LABS: Troponin-I High Sensitivity 36.2 ng/L (<3.5-35.0)
[2025-09-23 13:58] LABS: NT Pro B Type Natriuretic Pept 213.1 pg/mL (<300)
[2025-09-23] MEDS: iohexoL 350 MG/ML 100 ML INFUS..BTL IV (14:27)
[2025-09-23 14:49] VITALS: BP 124/78; PULSE 77; RESP 18; TEMP 36.9; O2SAT 95
[2025-09-23 15:33] LABS: Troponin-I High Sensitivity 39.8 ng/L (<3.5-35.0)
[2025-09-23 16:05] VITALS: BP 124/78; PULSE 77; RESP 18; TEMP 36.9; O2SAT 95
== END 2025-09-23 16:08 | disposition home or self-care (01) ==
PROVIDERS: Physician Assistant Medical; Emergency Provider Emergency Medicine; PCP Internal Medicine
DX: R06.01 Orthopnea (principal); R05.9 Cough, unspecified; R06.02 Shortness of breath; I10 Essential (primary) hypertension; E03.9 Hypothyroidism, unspecified; Z79.899 Other long term (current) drug therapy
CPT/HCPCS: 36415; 71046; 71275; 80053; 83735; 83880; 84484; 85025; 93005; 99284; 99285; Q9967

== ENCOUNTER → 2025-09-23 12:22 | Outpatient (BNV) | payer MEDICARE, MEDICAID, SELFPAY | PROVIDERS: Emergency Provider Emergency Medicine; PCP Internal Medicine; Visit Provider Radiology Diagnostic Radiology | DX: R06.02 Shortness of breath (principal) | CPT/HCPCS: 71046; 71275 ==

== ENCOUNTER → 2025-09-23 12:22 | Outpatient (BNV) | payer MEDICARE, MEDICAID, SELFPAY | PROVIDERS: Emergency Provider Emergency Medicine; PCP Internal Medicine; Visit Provider Internal Medicine | DX: R94.31 Abnormal electrocardiogram [ECG] [EKG] (principal); R06.02 Shortness of breath | CPT/HCPCS: 93010 ==

== ENCOUNTER 2025-11-03 09:40 | Outpatient (AMB) | payer MEDICARE, MEDICAID, SELFPAY ==
[2025-11-03 09:45] VITALS: BP 128/74; PULSE 86; O2SAT 96; BMI 45.9
--- NOTE | 2025-11-03 09:45 | MHC.OFFVIS ---
Vital Signs 11/03/25 09:45 Height 6 ft 3 in Weight 367 lb BMI 45.9 BP 128/74 Blood Pressure Location Rt brachial Position Sitting Pulse 86 Pulse Source Pulse Oximeter Pulse Oximetry (%) 96 Oxygen Delivery Method Room Air Intake Visit Reasons: COPD Allergies Penicillins (PCN) Allergy (Intermediate, Verified 09/23/25 12:23) HIVES CYNDIE Inhibitors (CYNDIE INHIBITORS) Allergy (Mild, Verified 09/23/25 12:23) COUGH HPI HPI COPD: Details: 65-year-old gentleman, recent approximately 15 pack-year smoker, quit March of 2024 followed for asthma and pulmonary component to dyspnea. He continues on Advair, Combivent, and albuterol MDI with good control of his symptoms. He continues to complain of significant orthopnea that is slowly getting better with bumetanide. He was evaluated in ER on 09/23/2025 orthopnea and his bumetanide was doubled at this time. Patient does report continuous improvement in his orthopnea symptoms, however not complete resolution. [facility] Medical History Osteoarthritis of right knee Hypothyroid Hypertension Surgical History H/O left knee surgery History of tonsillectomy History of cholecystectomy Social History Alcohol intake: current Alcohol intake frequency: holidays/special occasions only Patient Tobacco Use Status: Former Tobacco user Tobacco use type: Cigarette Years Smoked: started at age 23, 0.5PPD, quit 5 months april 2024 Substance Use Type: Marijuana Current occupational status: unemployed Current occupation: right handed Review of Systems Const Denies daytime sleepiness, Denies excessive sweating, Denies fatigue, Denies fever(s), Denies lethargy, Denies malaise, Denies night sweats, Denies snoring and Denies weight loss Eyes Denies blurry vision and Denies itchy eyes ENT Denies nasal congestion, Denies post nasal drip, Denies sinus pain, Denies sinus pressure and Denies other ( Thrush) Card Denies chest pain, Denies pedal edema, Denies dyspnea, Reports orthopnea and Denies paroxysmal nocturnal dyspnea Resp Denies cough, Denies hemoptysis, Denies excessive phlegm production, Denies dyspnea, Denies snoring and Denies wheezing GI Denies abdominal pain and Denies heartburn Musc Denies myalgias, Denies arthralgias and Denies joint swelling Skin/Breast Denies rash Neuro Denies memory loss and Denies seizure-like activity Psych Denies abnormal sleep pattern, Denies anxiety and Denies memory loss Endo Denies excessive sweating, Denies fatigue and Denies heat intolerance Parag/Lymph Denies easy bruising Aller/Immun Denies itchy eyes, Denies seasonal rhinorrhea and Denies wheezing Physical Exam Vital Signs: Last Vital Signs Pulse 86 11/03/25 09:45 BP 128/74 11/03/25 09:45 Pulse Ox 96 11/03/25 09:45 Oxygen Delivery Method Room Air 11/03/25 09:45 BMI result Body Mass Index 45.9 Const General: no acute distress and alert Nutritional Appearance: obese Orientation/consciousness: Other orientation findings ( oriented) HEENT Head: Yes atraumatic Eyes General: appearance normal, both eyes and all related structures Sclerae: sclerae normal EOM: EOMs intact bilaterally Neck Neck: Yes supple Lymphatic: no lymphadenopathy noted Resp Effort & Inspection: normal respiratory effort and no use of accessory muscles Auscultation: clear to auscultation bilaterally Cardio Rate: regular rate Rhythm: regular rhythm Heart sounds: no gallops, no murmurs and no rubs Skin General skin exam: other ( warm) Extrem General: No clubbing, No cyanosis and Yes edema (2+ bilateral) Assessment & Plan Assessment & Plan (1) Pulmonary emphysema: Code(s): J43.9 - Emphysema, unspecified Category: Medical Plan: Well controlled on current regimen of Advair and Combivent. Continue current regimen. (2) Orthopnea: Code(s): R06.01 - Orthopnea Category: Medical Plan: Slowly improving, however still significantly symptomatic. Will add metolazone to Bumex 2 mg daily. Medications: New metolazone 10 mg PO .Friday 14 tabs 6RF Changed From bumetanide 1 mg PO DAILY 30 tabs 6RF To bumetanide 1 mg (1/2 x 2 mg) PO DAILY 30 tabs 6RF From bumetanide 1 mg (1/2 x 2 mg) PO DAILY 30 tabs 6RF To bumetanide 2 mg PO DAILY 30 tabs 6RF Coding Level of Care Code Est Pt Level 4 (59580) Diagnoses Pulmonary emphysema J43.9 Orthopnea R06.01
== END 2025-11-03 10:02 | disposition home or self-care (01) ==
PROVIDERS: PCP Internal Medicine; Visit Provider Internal Medicine Pulmonary Disease
DX: J43.9 Emphysema, unspecified (principal); R06.01 Orthopnea
CPT/HCPCS: 99214

== ENCOUNTER → 2025-11-03 09:40 | Outpatient (BNVA) | payer MEDICARE, MEDICAID, SELFPAY | PROVIDERS: PCP Internal Medicine; Visit Provider Internal Medicine Pulmonary Disease | DX: J43.9 Emphysema, unspecified (principal); R06.01 Orthopnea; Z79.51 Long term (current) use of inhaled steroids; Z87.891 Personal history of nicotine dependence | CPT/HCPCS: 99212 ==